=== PATIENT | female | born 1995 | race Caucasian/White ===

== ENCOUNTER 2017-01-29 01:24 | Emergency (ER) | payer OTHER ==
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
[2017-01-29] MEDS ORDERED: IBUPROFEN 200 MG TAB PO ONE (01:46)
[2017-01-29 02:02] LABS: COLOR PALE YELLOW; LEUKOCYTE ESTERASE,URINE NEGATIVE (NEGATIVE); NITRITE,URINE NEGATIVE (NEGATIVE)
[2017-01-29 02:57] VITALS: BP 124/91; PULSE 92; RESP 18; TEMP 98.8; O2SAT 94
== END 2017-01-29 02:58 | disposition home or self-care (01) ==
DX: T14.8 Other injury of unspecified body region (principal); V49.49XA Driver injured in collision with other motor vehicles in traffic accident, initial encounter; Y92.410 Unspecified street and highway as the place of occurrence of the external cause; Y99.8 Other external cause status; Y93.89 Activity, other specified